=== PATIENT | male | born 1965 | race Caucasian/White ===

== ENCOUNTER 2018-08-07 19:30 | Inpatient (IN) | payer OTHER, MEDICAID ==
[~2018-08-07] VITALS: Ht 172.7 cm; Wt 87.0 kg
[2018-08-08] MEDS ORDERED: IPRATROPIUM BROM 0.5 MG/2.5ML INH SOL NEB ONE (00:30)
[2018-08-08] MEDS ORDERED: ALBUTEROL SULF 2.5 MG/0.5ML(0.5%) NEB SOLN NEB ONE (00:30)
[2018-08-08 01:23] LABS: INR 1.13 (0.9-1.15); Partial Thromboplastin Time 28.4 sec (23.78-33.04)
[2018-08-08 01:28] LABS: Alanine Aminotransferase 136 U/L (16-61); Albumin 3.3 g/dL (3.4-5.0); Amylase 66 U/L (25-115); Anion Gap 10 (5-15); Aspartate Aminotransferase 73 U/L (15-37); BUN/Creatinine Ratio 29.9; Blood Urea Nitrogen 53 mg/dL (7-18); Calcium 8.2 mg/dL (8.5-10.1); Carbon Dioxide 23 mmol/L (21-32); Chloride 110 mmol/L (98-107); GFR African American 52 mL/min; GFR Non-African American 43 mL/min; Glucose 174 mg/dL (74-106); Lipase 39 U/L (73-393); Magnesium 2.5 mg/dL (1.6-2.6); Potassium 4.9 mmol/L (3.5-5.1); Sodium 143 mmol/L (136-145)
[2018-08-08] MEDS ORDERED: MIDAZOLAM HCL 5 MG/ML-1ML VIAL IV ONE (01:30)
[2018-08-08 01:33] LABS: Alkaline Phosphatase 64 U/L (45-117); Bilirubin, Total 0.5 mg/dL (0.2-1.0); Total Protein 7.3 g/dL (6.4-8.2)
[2018-08-08] MEDS ORDERED: DILTIAZEM HCL 25 MG/5 ML VIAL IV ONE ×2 (03:00→06:15)
[2018-08-08] MEDS ORDERED: DILTIAZEM 125mg/125ml BAG KIT 125 ML IV ONE (03:00)
[2018-08-08] MEDS ORDERED: cefTRIAXone 1GM/50ML D5W 50 ML IV ONE (05:15)
[2018-08-08 05:49] LABS: Basophils # (auto) 0 uL; Basophils % (auto) 0.1 % (0.0-2.0); Eosinophils # (auto) 0 uL; Mean Corpuscular Hemoglobin 29.5 pg (28.0-32.0); Monocytes # (auto) 0.4 uL
[2018-08-08 05:56] LABS: Eosinophils % (auto) 0.5 % (0.0-7.0); Hematocrit 49.3 % (41.0-53.0); Hemoglobin 16.7 g/dL (13.5-17.5); Lymphocytes # (auto) 0.2 uL; Lymphocytes % (auto) 7.5 % (10.0-50.0); Mean Corpuscular Volume 86.8 fL (80.0-100.0); Monocytes % (auto) 12.7 % (0.0-12.0); Neutrophils # (auto) 2.4 uL; Neutrophils % (auto) 79.2 % (37.0-80.0); Nucleated Red Blood Cells % 0.1 %; Platelet Count (auto) 45 10^3/uL (140-450); Red Blood Cells 5.68 10^6/uL (4.5-5.90); Red Cell Distribution Width 13.7 % (11.8-14.3)
[2018-08-08] MEDS ORDERED: SODIUM CHLORIDE 0.9% 2,000 ML IV ONE (06:15)
[2018-08-08] MEDS: SODIUM CHLORIDE 0.9% 1,000 ML IV SCH ×2 (08:45→17:14)
[2018-08-08] MEDS ORDERED: ONDANSETRON HCL 4 MG/2 ML VIAL IV PRN (08:45)
[2018-08-08] MEDS ORDERED: NITROGLYCERIN 0.4 MG SL TAB SL PRN (08:45)
[2018-08-08] MEDS ORDERED: MORPHINE SULFATE 4 MG/ML SYR/VIAL IV PRN ×2 (08:45)
[2018-08-08] MEDS ORDERED: ACETAMINOPHEN 650 MG RECT SUPP PR PRN (08:45)
[2018-08-08] MEDS: AZITHROMYCIN 500MG/ 250ML 250 ML IV SCH (10:00)
[2018-08-08] MEDS ORDERED: GASTROGRAFIN 120 ML SOL ONE (10:31)
[2018-08-08] MEDS: IPRATROPIUM BROM 0.5 MG/2.5ML INH SOL NEB SCH ×3 (12:22→19:52)
[2018-08-08] MEDS: ALBUTEROL SULF 2.5 MG/0.5ML(0.5%) NEB SOLN NEB SCH ×3 (12:22→19:52)
[2018-08-08] MEDS: ENOXAPARIN SOD 40 MG/0.4 ML SYRINGE SC SCH (12:31)
[2018-08-08] MEDS ORDERED: AMIODARONE HCL 150 MG in D5W 5% 100 ML IV ONE (13:00)
[2018-08-08] MEDS ORDERED: AMIODARONE HCL 900 MG in DEXTROSE 500 ML IV SCH (13:05)
[2018-08-08] MEDS: metroNIDAZOLE 500MG/100ML 100 ML IV SCH ×2 (14:46→18:00)
[2018-08-08] MEDS: AMIODARONE HCL 900 MG in DEXTROSE 500 ML IV SCH (19:05)
[2018-08-08] MEDS ORDERED: AMIODARONE HCL 75 MG in D5W 5% 100 ML IV ONE (20:30)
[2018-08-08 20:36] VITALS: BP 107/70
[2018-08-08] MEDS ORDERED: AMIODARONE HCL (50 MG/ ML) 3 ML VIAL IV ONE (20:45)
[2018-08-09] MEDS: metroNIDAZOLE 500MG/100ML 100 ML IV SCH ×5 (00:16→23:46)
[2018-08-09] MEDS: SODIUM CHLORIDE 0.9% 1,000 ML IV SCH ×3 (01:09→10:35)
[2018-08-09] MEDS: IPRATROPIUM BROM 0.5 MG/2.5ML INH SOL NEB SCH ×5 (06:10→23:51)
[2018-08-09] MEDS: ALBUTEROL SULF 2.5 MG/0.5ML(0.5%) NEB SOLN NEB SCH ×5 (06:10→23:51)
[2018-08-09 07:13] LABS: Basophils # (auto) 0 uL; Eosinophils # (auto) 0 uL; Lymphocytes # (auto) 0.5 uL; Mean Corpuscular Hemoglobin 29.3 pg (28.0-32.0); Monocytes # (auto) 0.5 uL; Neutrophils # (auto) 3.4 uL; White Blood Cell 4.4 10^3/uL (4.4-10.8)
[2018-08-09 07:20] LABS: Basophils % (auto) 0.3 % (0.0-2.0); Hematocrit 41.6 % (41.0-53.0); Hemoglobin 13.9 g/dL (13.5-17.5); Lymphocytes % (auto) 10.6 % (10.0-50.0); Mean Corpuscular Hgb Conc. 33.4 g/dL (32.0-36.0); Mean Corpuscular Volume 87.7 fL (80.0-100.0); Monocytes % (auto) 10.8 % (0.0-12.0); Neutrophils % (auto) 78.3 % (37.0-80.0); Platelet Count (auto) 37 10^3/uL (140-450); Red Blood Cells 4.74 10^6/uL (4.5-5.90); Red Cell Distribution Width 13.8 % (11.8-14.3)
[2018-08-09 07:29] LABS: Anion Gap 5 (5-15); BUN/Creatinine Ratio 39.9; Blood Urea Nitrogen 57 mg/dL (7-18); Calcium 7.4 mg/dL (8.5-10.1); Carbon Dioxide 26 mmol/L (21-32); Chloride 119 mmol/L (98-107); Cholesterol < 50 mg/dL (< 200); GFR African American 66 mL/min; GFR Non-African American 55 mL/min; Glucose 141 mg/dL (74-106); Potassium 3.5 mmol/L (3.5-5.1); Sodium 150 mmol/L (136-145); Triglycerides 54 mg/dL (< 150)
[2018-08-09 07:32] LABS: HDL Cholesterol 14 mg/dL (40-59); LDL Cholesterol 11 mg/dL (< 100)
[2018-08-09] MEDS: cefTRIAXone 1GM/50ML D5W 50 ML IV SCH (09:20)
[2018-08-09] MEDS: AZITHROMYCIN 500MG/ 250ML 250 ML IV SCH (10:35)
[2018-08-09] MEDS: ENOXAPARIN SOD 40 MG/0.4 ML SYRINGE SC SCH (10:35)
[2018-08-09] MEDS ORDERED: LORazepam 2MG/ML-1ML VIAL IV PRN (16:15)
[2018-08-09] MEDS: AMIODARONE HCL 900 MG in DEXTROSE 500 ML IV SCH (21:10)
[2018-08-10] MEDS: SODIUM CHLORIDE 0.9% 1,000 ML IV SCH ×3 (04:02→17:13)
[2018-08-10] MEDS: ALBUTEROL SULF 2.5 MG/0.5ML(0.5%) NEB SOLN NEB SCH ×3 (06:30→18:55)
[2018-08-10] MEDS: IPRATROPIUM BROM 0.5 MG/2.5ML INH SOL NEB SCH ×3 (06:30→18:55)
[2018-08-10] MEDS: metroNIDAZOLE 500MG/100ML 100 ML IV SCH ×3 (06:40→18:08)
[2018-08-10 07:36] LABS: Basophils # (auto) 0 uL; Eosinophils # (auto) 0 uL; Eosinophils % (auto) 0.1 % (0.0-7.0); Hemoglobin 12.6 g/dL (13.5-17.5); Lymphocytes # (auto) 0.4 uL; Red Blood Cells 4.34 10^6/uL (4.5-5.90); White Blood Cell 3.6 10^3/uL (4.4-10.8)
[2018-08-10 07:38] LABS: Basophils % (auto) 0.3 % (0.0-2.0); Hematocrit 38.6 % (41.0-53.0); Lymphocytes % (auto) 12.1 % (10.0-50.0); Mean Corpuscular Hemoglobin 29.1 pg (28.0-32.0); Mean Corpuscular Hgb Conc. 32.7 g/dL (32.0-36.0); Mean Corpuscular Volume 88.9 fL (80.0-100.0); Monocytes # (auto) 0.4 uL; Monocytes % (auto) 10.2 % (0.0-12.0); Neutrophils # (auto) 2.8 uL; Neutrophils % (auto) 77.3 % (37.0-80.0); Platelet Count (auto) 32 10^3/uL (140-450); Red Cell Distribution Width 14.6 % (11.8-14.3)
[2018-08-10 07:54] LABS: Calcium 7.4 mg/dL (8.5-10.1); Potassium 3.5 mmol/L (3.5-5.1)
[2018-08-10 07:56] LABS: BUN/Creatinine Ratio 35.6
[2018-08-10] MEDS: cefTRIAXone 1GM/50ML D5W 50 ML IV SCH (09:19)
[2018-08-10] MEDS: ENOXAPARIN SOD 40 MG/0.4 ML SYRINGE SC SCH (10:07)
[2018-08-10] MEDS: AZITHROMYCIN 500MG/ 250ML 250 ML IV SCH (10:07)
[2018-08-10] MEDS ORDERED: BENZOCAINE (DENTAL) 20 % SPRAY 60ML MT ONE ×3 (11:48→12:00)
[2018-08-10] MEDS ORDERED: MORPHINE SULFATE INJECTION 1 ML ONE (12:50)
--- NOTE | 2018-08-10 14:13 | NUR ---
I faxed transfer order to [facility] [phone].
--- NOTE | 2018-08-10 15:59 | NUR ---
I spoke with [employer] Manager Ellen who said that patient's stay is authorized through today-that patient is not stable for transfer back in network today-she will send the updated authorization.
[2018-08-10] MEDS: AMIODARONE HCL 900 MG in DEXTROSE 500 ML IV SCH (19:05)
[2018-08-11] MEDS: metroNIDAZOLE 500MG/100ML 100 ML IV SCH ×4 (00:12→18:24)
[2018-08-11] MEDS: SODIUM CHLORIDE 0.9% 1,000 ML IV SCH ×2 (00:48→08:45)
[2018-08-11] MEDS: IPRATROPIUM BROM 0.5 MG/2.5ML INH SOL NEB SCH ×4 (05:44→18:26)
[2018-08-11] MEDS: ALBUTEROL SULF 2.5 MG/0.5ML(0.5%) NEB SOLN NEB SCH ×4 (05:44→18:26)
[2018-08-11] MEDS: cefTRIAXone 1GM/50ML D5W 50 ML IV SCH (09:34)
--- NOTE | 2018-08-11 10:17 | NUR ---
Transfer order and updated clinical information faxed to [facility] [phone].
--- NOTE | 2018-08-11 10:19 | NUR ---
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
[2018-08-11] MEDS: AZITHROMYCIN 500MG/ 250ML 250 ML IV SCH (10:22)
[2018-08-11] MEDS: ENOXAPARIN SOD 40 MG/0.4 ML SYRINGE SC SCH (10:47)
--- NOTE | 2018-08-11 11:35 | NUR ---
I spoke with patient's mom Michaela who stated that she wishes for him to stay here and not be transferred to [facility].
--- NOTE | 2018-08-11 11:51 | NUR ---
NUTRITION ASSESSMENT NOTES Please refer to link notes of nutrition screen form filed under the intervention section of the plan of care for further details. Est. Needs: 1650 kcal to 2050 kcal (20-25 kcal/kgBW), 65 gms to 82 gms pro (0.8-1.0 gms/kgBW). Will continue to monitor pertinent labs and reassess nutrient need prn Thank you. Addendum: 08/11/18 at [address] Amended: Links added.
--- NOTE | 2018-08-11 12:01 | NUR ---
I spoke with Dr. 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
[2018-08-11] MEDS ORDERED: AMLO5TAB13 PO (14:04)
[2018-08-11] MEDS ORDERED: ASPI-231 PO (14:05)
[2018-08-11] MEDS ORDERED: FURO40TA PO (14:07)
[2018-08-11] MEDS ORDERED: METO25TA5 PO (14:07)
[2018-08-11] MEDS ORDERED: METOPROLOL TARTRATE 25 MG TAB PO SCH (15:00)
[2018-08-11] MEDS: amLODIPine BESYLATE 5 MG TAB PO SCH (15:49)
[2018-08-11] MEDS: AMIODARONE HCL 900 MG in DEXTROSE 500 ML IV SCH (18:55)
[2018-08-11 19:33] VITALS: BP 109/72
[2018-08-12] VITALS (9 sets, daily range): BP systolic 111–130; BP diastolic 36–66
[2018-08-12] MEDS: metroNIDAZOLE 500MG/100ML 100 ML IV SCH ×3 (00:03→12:55)
--- NOTE | 2018-08-12 00:25 | NUR ---
Admit to [facility] admitted to [facility] via gurney on manager cardiac, and portable 02. Patient transferred to bed, connected to unit monitoring and oxygen, and weighed by bedscale. Patient oriented to Lianet bazan RN, unit, room, bed, and unit policies regarding patient care and visiting hours. NOTE: Patient is on amiodarone drip 0.5mg/min
--- NOTE | 2018-08-12 06:00 | NUR ---
ADMISSION INTERVENTIONS PATIENT IS APHASIC, NO FAMILY AT BEDSIDE. THIS RN COULDN'T COMPLETE ADMISSION INTERVENTIONS. WILL ENDORSE TO DAY SHIFT RN.
[2018-08-12] MEDS: ALBUTEROL SULF 2.5 MG/0.5ML(0.5%) NEB SOLN NEB SCH ×3 (06:22→11:31)
[2018-08-12] MEDS: IPRATROPIUM BROM 0.5 MG/2.5ML INH SOL NEB SCH ×3 (06:22→11:31)
--- NOTE | 2018-08-12 07:30 | NUR ---
RECEIVED PATIENT SITTING UP IN THE BED, O2 BY R/A, NON VERBAL, INCONTINENT OF URINE AND STOOL, PER MOM HE IS MENTALLY DELAYED, PATIENT JUST STARES AT YOU, AMIODARONE DRIP AT 16.66ML/HR INFUSING INTO THE RFA BY THE IV PUMP, LEFT THUMB 22G SALINE LOCK FLUSHED AND PATENT
--- NOTE | 2018-08-12 08:00 | NUR ---
MOM INTO SEE THE PATIENT
--- NOTE | 2018-08-12 08:30 | NUR ---
MOM FEED THE PATIENT BREAKFAST AND HE ATE NO PROBLEM
[2018-08-12] MEDS: cefTRIAXone 1GM/50ML D5W 50 ML IV SCH (08:55)
--- NOTE | 2018-08-12 09:00 | NUR ---
DR ROSARIO IN TO SEE THE PATIENT AND SPOKE TO THE KATHY BARBA AND STATES HE CAN GO HOME TODAY AFTERNOON, AFTER WE SEE HOW HIS HR IS
[2018-08-12] MEDS ORDERED: FUROSEMIDE 20 MG TAB PO SCH (10:00)
[2018-08-12] MEDS: amLODIPine BESYLATE 5 MG TAB PO SCH (10:00)
[2018-08-12] MEDS ORDERED: METOPROLOL TARTRATE 50 MG TAB PO SCH (10:00)
[2018-08-12] MEDS ORDERED: ASPirin 81 mg TAB PO SCH (10:00)
--- NOTE | 2018-08-12 10:00 | NUR ---
AMIO DRIP STOPPED WILL CONTINUE TO MONITOR
[2018-08-12] MEDS: AZITHROMYCIN 500MG/ 250ML 250 ML IV SCH (10:20)
--- NOTE | 2018-08-12 10:20 | NUR ---
EXPLAIN MEDICATIONS TO THE PATIENT AND THE MOTHER WHO REFUSED TO THE LASIX AND THE [facility] STATED SHE DOESN'T WANT THE LASIX GIVEN AT THIS TIME AND SHE WANTS TO TALK TO HER MD ABOUT THE [facility] BECAUSE SHE HEARD IT CAUSES CANCER
[2018-08-12] MEDS: ENOXAPARIN SOD 40 MG/0.4 ML SYRINGE SC SCH (10:23)
--- NOTE | 2018-08-12 11:25 | NUR ---
PATIENT SITING UP IN BED WATCHING TV, MOM AT THE BEDSIDE
--- NOTE | 2018-08-12 12:31 | NUR ---
GAVE THE MOM THE PRESCRIPTION FOR ANTIBIOTICS AND STATED SHE IS GOING TO LEAVE AND GET THEM FILLED AND GET HIS CLOTHES AND SHE WILL BE BACK
--- NOTE | 2018-08-12 13:45 | NUR ---
MOM LEFT AND WENT HOME TO GET PATIENT'S CLOTHES
--- NOTE | 2018-08-12 14:30 | NUR ---
SITTING UP IN BED WATCHING THE FOOTBALL GAME
--- NOTE | 2018-08-12 15:30 | NUR ---
STILL WATCHING THE FOOTBALL GAME
--- NOTE | 2018-08-12 16:10 | NUR ---
MOM BACK AND DISCHARGE INSTRUCTIONS GIVEN AND VERBALIZED THAT SHE UNDERSTOOD AND THAT SHE TOOK THE PRESCRIPTIONS TO THE [facility] TO GET FILLED AND WILL PICK IT UP ON THE WAY HOME
--- NOTE | 2018-08-12 16:20 | NUR ---
REMOVED SALINE LOCK 20G FROM THE RFA INTACT AND 22G FROM THE LEFT THUMB INTACT, PRESSURE HELD AND DRESSING PACED
--- NOTE | 2018-08-12 16:30 | NUR ---
GOTTEN DRESSED AND PLACED IN HIS PERSONAL W/C AND TAKEN TO PRIVATE VEHICLE FOR TRANSPORT HOME, MOM STATES HE HAS NO BELONGINGS
== END 2018-08-12 18:04 | disposition home or self-care (01) | DRG 177 ==
LOC: EDBD 19:30 → ER 19:30 → OVERFLOW 08-08 08:46 → DOU IN ICU 08-12 00:21
PROVIDERS: ADMIT Nurse Practitioner Acute Care; ATTEND Family Medicine
PROC: 0D9670Z Drainage of Stomach with Drainage Device, Via Natural or Artificial Opening (ICD-10-PCS; principal; 2018-08-08)
DX: J69.0 Pneumonitis due to inhalation of food and vomit (principal); N17.0 Acute kidney failure with tubular necrosis; K56.600 Partial intestinal obstruction, unspecified as to cause; I48.92 Unspecified atrial flutter; D68.59 Other primary thrombophilia; E87.0 Hyperosmolality and hypernatremia; F79 Unspecified intellectual disabilities; I11.0 Hypertensive heart disease with heart failure; G40.909 Epilepsy, unspecified, not intractable, without status epilepticus; Z96.649 Presence of unspecified artificial hip joint; I50.9 Heart failure, unspecified; W06.XXXA Fall from bed, initial encounter; I48.91 Unspecified atrial fibrillation; J20.9 Acute bronchitis, unspecified; Z74.01 Bed confinement status; Z79.82 Long term (current) use of aspirin; Z82.49 Family history of ischemic heart disease and other diseases of the circulatory system; Y93.89 Activity, other specified; Y92.092 Bedroom in other non-institutional residence as the place of occurrence of the external cause; Y99.8 Other external cause status
CPT/HCPCS: 36415; 36600; 71250; 74176; 74250; 80048; 80053; 80061; 82150; 82805; 83605; 83690; 83735; 84443; 84484; 85025; 85610; 85730; 87040; 87081; 93005; 93306; 94640; 96361; 96365; 96367; 96375; 96376; G0378; J0696; J2250; J3490; J7060